=== PATIENT | female | born 1955 | race Caucasian/White ===

== ENCOUNTER → 2019-01-27 | Outpatient (CLI) | payer MEDICARE, OTHER ==
[2019-01-27 12:43] LABS: Basophils # (A) 0.1 k/uL (0-0.2); Basophils % (A) 1 %; Eosinophils # (A) 0.2 k/uL (0-0.7); Eosinophils % (A) 2 %; HCT 43.4 % (34.0-46.0); HGB 14.1 gm/dL (11.4-16.0); Lymphocytes # (A) 2.4 k/uL (1.0-4.8); Lymphocytes % (A) 25 %; MCH 31.1 pg (25.0-35.0); MCHC 32.5 g/dL (31.0-37.0); MCV 95.7 fL (80.0-100.0); Mean Platelet Volume 7.5; Monocytes # (A) 0.4 k/uL (0-1.0); Monocytes % (A) 5 %; Neutrophils # (A) 6.4 k/uL (1.3-7.7); Neutrophils % (A) 66 %; Platelet Count 363 k/uL (150-450); RBC 4.54 m/uL (3.80-5.40); RDW 12.9 % (11.5-15.5); WBC 9.8 k/uL (3.8-10.6)
[2019-01-27 18:47] LABS: Albumin 4.7 g/dL (3.80-4.90); Albumin/Globulin Ratio 2.24 (1.60-3.17); Anion Gap 8.3 mmol/L (4.00-12.00); Calcium 9.9 mg/dL (8.7-10.3); Carbon Dioxide 29.7 mmol/L (21.6-31.8); Globulin 2.1 g/dL (1.6-3.3); Potassium 4.2 mmol/L (3.5-5.5); Total Bilirubin 0.5 mg/dL (0.2-1.2); Total Protein 6.8 g/dL (6.2-8.2)
[2019-01-27 21:28] LABS: Vitamin D 25 Hydroxy 19.3 ng/mL (30.0-100.0)
[2019-01-27 21:58] LABS: Hepatitis B Core IgM Non-Reactive (Non-Reactive); Hepatitis B Surface AB- Quant 3.5 mIU/mL
== END ==
LOC: LABWHC1 12:08
PROVIDERS: ATTEND Nurse Practitioner Acute Care
DX: E55.9 Vitamin D deficiency, unspecified (principal); D51.0 Vitamin B12 deficiency anemia due to intrinsic factor deficiency; G35 Multiple sclerosis
CPT/HCPCS: 36415; 80053; 82306; 82607; 84207; 85025; 86704; 86705; 86706; 87340

== ENCOUNTER → 2021-05-01 | Outpatient (CLI) | payer MEDICARE ==
--- NOTE | 2021-05-03 08:55 | P.ARTDOP ---
Arterial Doppler LOWER EXTREMITY ARTERIAL DOPPLER: DATE OF SERVICE: 05/01/2021 Reason for study: Right ankle swelling and discoloration. Doppler waveforms: Multiphasic bilaterally throughout. Pulse volume recording: []. Pressure gradients: None. Ankle-brachial indices: Greater than 1 bilaterally. Toe brachial indices: 0.7 on the right, 0.81 on the left Impression: Normal study.
== END | disposition home or self-care (01) ==
LOC: RADUSWWP 13:44
PROVIDERS: ATTEND Internal Medicine
DX: R22.41 Localized swelling, mass and lump, right lower limb (principal)
CPT/HCPCS: 93922

== ENCOUNTER → 2024-04-29 | Outpatient (CLI) | payer MEDICARE ==
--- NOTE | 2024-04-29 13:20 | BD ---
EXAMINATION TYPE: Axial Bone Density DATE OF EXAM: 04/29/2024 CLINICAL HISTORY: 68 years old Female. ICD-10 CODE: M85.851 OSTEOPENIA Height: 5 ft 3 in Weight: 136 FRAX RISK QUESTIONS: Alcohol (3 or more units per day): no Family History (Parent hip fracture): no Glucocorticoids (More than 3mos): no (Ex: prednisone, prednisolone, methylprednisolone, dexamethasone, and hydrocortisone). History of Fracture in Adulthood: yes Secondary Osteoporosis: 1. Type 1 Diabetes: no 2. Hyperthyroidism: no 3. Menopause before 45: no 4. Malnutrition: no 5. Chronic liver disease: no Rheumatoid Arthritis: no Current Tobacco Use: yes RISK FACTORS HISTORY OF: History of Wrist Fracture: right When: 10-11 years ago MEDICATIONS: Thyroid Medications: yes Which medication: levothyroxine How Lon years Osteoporosis Medications: none EXAM MEASUREMENTS: Bone mineral densitometry was performed using the [employer] System. Bone mineral density as measured about the Lumbar spine is: ----- L1-L4(G/cm2): 1.022 T Score Values are as follows: ----- L1: -1.3 ----- L2: -1.6 ----- L3: -1.1 ----- L4: -1.4 ----- L1-L4: -1.3 Z Score Values are as follows: ----- L1: 0.4 ----- L2: 0.1 ----- L3: 0.6 ----- L4: 0.4 ----- L1-L4: 0.5 baseline Bone mineral density about the R hip (g/cm2): 0.832 Bone mineral density about the L hip (g/cm2): 0.850 T Score values are as follows: -----R Neck: -1.5 -----L Neck: -1.4 -----R Total: -1.8 -----L Total: -2.0 Z Score values are as follows: -----R Neck: 0.3 -----L Neck: 0.4 -----R Total: -0.3 -----L Total: -0.4 baseline FRAX%s: The graph provided illustrates a 15.6 % chance for a major osteoporotic fx and a 2.3 % chance for the hips probability for fx in 10 years time. IMPRESSION: Osteopenia (T Score between -2.5 and -1). There is slightly increased risk of fracture and the patient may be considered for treatment. Re-Screen 2-5 years. NOTE: T-SCORE=SD OF THE YOUNG ADULT MEAN.
--- NOTE | 2024-04-29 14:50 | US ---
EXAMINATION TYPE: US arterial LE single level DATE OF EXAM: 04/29/2024 12:20 PM CLINICAL INDICATION: Female, 68 years old with history of 165.23 CAROTID STENOSIS, I73.9 PAD; History of: Smoker: Current Smoker Hypertension: Takes medication Diabetic: No Hyperlipidemia: Yes TIA/CVA: No Previous Vascular Surgery: No CAD: No NV: No Vascular Ulcers: No Claudication: Left Gangrene: No Doppler Waveforms: Right: Multiphasic Left: Multiphasic Right Brachial Pressure: 134 Left Brachial Pressure: 135 Ankle-Brachial Indices: Right: 1.16 Left: 1.03 (Vessel hardening > 1.4; Normal 0.9 - 1.4, Moderate 0.7 - 0.9, Severe 0.5-0.7) IMPRESSION: Normal ankle-brachial indices bilaterally.
--- NOTE | 2024-04-29 14:54 | US ---
EXAMINATION TYPE: US carotid duplex BILAT DATE OF EXAM: 04/29/2024 COMPARISON: NONE CLINICAL INDICATION: Female, 68 years old with history of 165.23 CAROTID STENOSIS, I73.9 PAD; Left si ded weakness, ? due to MS; Patient denies any other signs or symptoms at this time. Hx Smoker, HTN, H igh cholesterol TECHNIQUE: Carotid duplex ultrasound examination. Indirect Doppler criteria was utilized. FINDINGS: EXAM MEASUREMENTS: RIGHT: Peak Systolic Velocity (PSV) cm/sec ----- Right CCA: 65 ----- Right ICA: 91 ----- Right ECA: 56 ICA/CCA ratio: 1.4 RIGHT: End Diastole cm/sec ----- Right CCA: 13 ----- Right ICA: 27 ----- Right ECA: 7 LEFT: Peak Systolic Velocity (PSV) cm/sec ----- Left CCA: 61 ----- Left ICA: 90 ----- Left ECA: 79 ICA/CCA ratio: 1.5 LEFT: End Diastole cm/sec ----- Left CCA: 17 ----- Left ICA: 29 ----- Left ECA: 13 VERTEBRALS (direction of flow): Right Vertebral: Antegrade Left Vertebral: Antegrade Rhythm: Normal BOOK REVIEWER NOTES: No intimal thickening, plaque or elevated velocities noted. IMPRESSION: No ultrasound evidence for hemodynamically significant stenosis of the bilateral visualized carotid a rterial systems. Criteria for Assigning % of Stenosis / Diameter reduction (Estimation based on the indirect measurements of the internal carotid artery velocities (ICA PSV). 1. Normal (no stenosis)=ICA PSV < 125 cm/s: ratio < 2.0: ICA EDV<40 cm/s. 2. Less than 50% stenosis=ICA PSV < 125 cm/s: ratio < 2.0: ICA EDV<40 cm/s. 3. 50 to 69% stenosis=ICA PSV of 125 to 230 cm/s: ration 2.0 ? 4.0: ICA EDV 40-100 cm/s. 4. Greater than 70% stenosis to near occlusion= ICA PSV > 230 cm/s: ratio > 4.0: ICA EDV > 100 cm/s. 5. Near occlusion= ICA PSV velocities may be low or undetectable: variable ratio and ICA EDV. 6. Total occlusion=unable to detect flow.
--- NOTE | 2024-04-30 08:31 | MM ---
Reason for Exam: Screening (asymptomatic). Last mammogram was performed 13 year(s) and 5 month(s) ago. Patient History: Menarche at age 11. First Full-Term at age 14. Postmenopausal. 10/11/2006, Excisional Biopsy on the Left side. Cyst Aspiration on the Right side. Cyst Aspiration on the Left side. Cyst Aspiration on the Left side. 08/22/2006, Benign Cyst Aspiration on the left side. Maternal aunt had breast cancer, age 54. Risk Values: Mary Kate 5 year model risk: 1.5%. NCI Lifetime model risk: 4.3%. Prior Study Comparison: 06/22/2004 Bilateral Diagnostic Mammogram, [facility]. 07/25/2006 Bilateral Diagnostic Mammogram, [facility]. 11/09/2010 Bilateral Screening Mammogram, [facility]. Tissue Density: The breasts are heterogeneously dense, which may obscure small masses. Findings: Analyzed By CAD. Nodular density upper outer left breast 4.5 cm from the nipple possible internal calcifications. Additional views are recommended. Benign-appearing calcifications right breast. Additional nodular density retroareolar right breast 2 cm from the nipple at 5-6 o'clock. Overall Assessment: Incomplete: need additional imaging evaluation, BI-RAD 0 Management: Diagnostic Mammogram of both breasts. . Patient should continue monthly self-breast exams. A clinical breast exam by your physician is recommended on an annual basis. This exam should not preclude additional follow-up of suspicious palpable abnormalities. Note on Mary Kate scores and lifetime risk: 1. A Mary Kate score greater than 3% is considered moderate risk. If this is the case, consider specialist referral to assess eligibility for a risk reducing agent. 2. If overall lifetime risk for the development of breast cancer is 20% or higher, the patient may qualify for future screening with alternating mammogram and breast MRI. Electronically signed and approved by: Huseyin Nieto M.D. Radiologis
--- NOTE | 2024-04-30 12:34 | CA ---
Transthoracic Echo Report Name: Susu Quick Age: 68 Gender: F : 1955 Exam Date: 04/29/2024 13:50 Exam Location: [facility] Ht (in): 63 Wt (lb): 136 Ordering Physician: Bennett Isaac MD Attending/Referring Phys: Ribbon Cleaner Babita Gao RDCS Procedure CPT: Indications: M85.861 Osteopenia of right hip Cardiac Hx: Technical Quality: Fair Contrast 1: Total Dose (mL): Contrast 2: Total Dose (mL): MEASUREMENTS (Male / Female) Normal Values 2D ECHO LV Diastolic Diameter PLAX 3.3 cm 4.2 - 5.9 / 3.9 - 5.3 cm LV Systolic Diameter PLAX 2.4 cm IVS Diastolic Thickness 1.3 cm 0.6 - 1.0 / 0.6 - 0.9 cm LVPW Diastolic Thickness 1.3 cm 0.6 - 1.0 / 0.6 - 0.9 cm LV Relative Wall Thickness 0.8 RV Internal Dim ED PLAX 4.1 cm LA Volume 50.1 cm??? 18 - 58 / 22 - 52 cm??? LA Volume Index 30.1 cm???/m??? 16 - 28 cm???/m??? M-MODE Aortic Root Diameter MM 2.4 cm LA Systolic Diameter MM 4.1 cm LA Ao Ratio MM 1.7 AV Cusp Separation MM 1.7 cm DOPPLER AV Peak Velocity 106.9 cm/s AV Peak Gradient 4.6 mmHg AV Mean Velocity 68.4 cm/s AV Mean Gradient 2.1 mmHg AV Velocity Time Integral 19.0 cm LVOT Peak Velocity 76.3 cm/s LVOT Peak Gradient 2.3 mmHg LVOT Velocity Time Integral 14.5 cm MV Area PHT 2.9 cm??? Mitral E Point Velocity 65.2 cm/s Mitral A Point Velocity 67.9 cm/s Mitral E to A Ratio 1.0 MV Deceleration Time 259.9 ms MV E' Velocity 5.7 cm/s Mitral E to MV E' Ratio 11.5 TR Peak Velocity 251.7 cm/s TR Peak Gradient 25.3 mmHg Right Ventricular Systolic Press 29.5 mmHg FINDINGS Left Ventricle Left ventricular cavity size normal. Mildly increased left ventricular wall thickness. Normal left ventricular systolic function with no obvious regional wall motion abnormalities. Left ventricular ejection fraction is estimated at 55-60 %. Right Ventricle Normal RV size and systolic function. Right ventricular systolic pressure within normal limits. Right Atrium Normal right atrial size. Left Atrium Mildly increased left atrial volume. Mitral Valve Structurally normal mitral valve. Mild mitral annular calcification. Mild mitral regurgitation. Aortic Valve Trileaflet aortic valve. No aortic valve regurgitation. Thickened aortic valve without stenosis. Tricuspid Valve Structurally normal tricuspid valve. Mild tricuspid regurgitation. Pulmonic Valve Structurally normal pulmonic valve. Pericardium No pericardial effusion. Aorta Normal size aortic root and proximal ascending aorta. CONCLUSIONS Left ventricular ejection fraction is estimated at 55-60 %. Mild concentric LVH Mild mitral regurgitation, mild tricuspid regurgitation Mild left atrial dilatation Previewed by: Dr Damien Carrillo (Electronically Signed) Final Date: 30 April 2024 12:33
== END | disposition home or self-care (01) ==
LOC: RADUSWWP 11:26
PROVIDERS: ATTEND Internal Medicine
DX: Z12.31 Encounter for screening mammogram for malignant neoplasm of breast (principal); I65.23 Occlusion and stenosis of bilateral carotid arteries; I73.9 Peripheral vascular disease, unspecified; I34.0 Nonrheumatic mitral (valve) insufficiency; Z12.2 Encounter for screening for malignant neoplasm of respiratory organs; M85.88 Other specified disorders of bone density and structure, other site; I08.1 Rheumatic disorders of both mitral and tricuspid valves; Z78.0 Asymptomatic menopausal state; Z80.3 Family history of malignant neoplasm of breast
CPT/HCPCS: 71271; 77063; 77067; 77080; 93306; 93880; 93922

== ENCOUNTER → 2024-05-13 | Outpatient (CLI) | payer MEDICARE ==
--- NOTE | 2024-05-14 12:06 | MM ---
Reason for Exam: Additional evaluation requested from abnormal screening. Last screening mammogram was performed less than 1 month ago. Patient History: Menarche at age 11. First Full-Term at age 14. Postmenopausal. 10/11/2006, Excisional Biopsy on the Left side. Cyst Aspiration on the Right side. Cyst Aspiration on the Left side. Cyst Aspiration on the Left side. 08/22/2006, Benign Cyst Aspiration on the left side. Maternal aunt had breast cancer, age 54. Risk Values: Mary Kate 5 year model risk: 1.5%. NCI Lifetime model risk: 4.3%. Prior Study Comparison: 11/09/2010 Bilateral Screening Mammogram, [facility]. 04/29/2024 Bilateral MG 3D screening mammo w/cad, [facility]. Tissue Density: The breasts are heterogeneously dense, which may obscure small masses. Findings: Analyzed By CAD. The pattern is symmetrical. Small focal asymmetry disperses normally in the upper outer left breast. This is near a scar marker. Persistent suspicious density is not identified. There are a few scattered benign-appearing calcifications. No suspicious groups of microcalcifications, spiculated or lobular masses, architectural distortion or other secondary signs of malignancy are mammographically apparent. Overall Assessment: Benign, BI-RAD 2 Management: Screening Mammogram of both breasts in 1 year. A negative mammogram report should not preclude additional follow up of suspicious palpable abnormalities. Patient should continue monthly self breast exam. A clinical breast exam by your physician is recommended on an annual basis and results should be correlated with mammographic findings. Note on Mary Kate scores and lifetime risk: 1. A Mary Kate score greater than 3% is considered moderate risk. If this is the case, consider specialist referral to assess eligibility for a risk reducing agent. 2. If overall lifetime risk for the development of breast cancer is 20% or higher, the patient may qualify for future screening with alternating mammogram and breast MRI. Electronically signed and approved by: Randell Caban D.O. Radiologis
== END | disposition home or self-care (01) ==
LOC: RADMAMWWP 13:39
PROVIDERS: ATTEND Internal Medicine
DX: R92.333 Mammographic heterogeneous density, bilateral breasts (principal); R92.8 Other abnormal and inconclusive findings on diagnostic imaging of breast; Z78.0 Asymptomatic menopausal state; Z80.3 Family history of malignant neoplasm of breast
CPT/HCPCS: 77066; G0279; 77062